=== PATIENT | male | born 1955 | race Two or more races ===

== ENCOUNTER 2016-07-12 17:46 | Emergency (ER) | payer OTHER ==
[~2016-07-12] VITALS: Ht 167.6 cm; Wt 117.9 kg
[2016-07-12] MEDS ORDERED: IV NORMAL SALINE 1000ML BAG 1,000 ML IV ONE (19:00)
[2016-07-12] MEDS ORDERED: CEFTRIAXONE 1GM IVPB FOR OMNI 50 ML IV ONE (19:00)
[2016-07-12 19:26] LABS: BASO % 0 % (0-3); EOS % 0 % (0-3); HEMATOCRIT 39.8 % (39.0-53.0); LYMPH # 0.7 x10^3/uL (1.0-4.8); LYMPH % 12 % (24-48); MEAN CORPUSCULAR HEMOGLOBIN 29 pg (25-35); MEAN CORPUSCULAR HGB CONC 33 g/dL (31-37); MEAN CORPUSCULAR VOLUME 90 fL (79-100); MONO % 12 % (0-9); NEUT % 76 % (31-73); PLATELET COUNT 155 x10^3/uL (140-400); RED BLOOD COUNT 4.41 x10^6/uL (4.30-5.70); RED CELL DISTRIBUTION WIDTH 14.8 % (11.5-14.5)
[2016-07-12 19:44] LABS: BILIRUBIN,URINE NEGATIVE (NEG); GLUCOSE,URINE NEGATIVE (NEG); NITRITE,URINE NEGATIVE (NEG); PH,URINE 5.5; PROTEIN,URINE NEGATIVE (NEG-TRACE); UROBILINOGEN,URINE 0.2 mg/dL (0.2 mg/dL)
[2016-07-12 19:44] LABS: CALCIUM 9.2 mg/dL (8.5-10.1); CREATININE 0.9 mg/dL (0.7-1.3); GFR 86.1; POTASSIUM 4.4 mmol/L (3.5-5.1)
[2016-07-12 19:48] LABS: ALBUMIN 3.6 g/dL (3.4-5.0); ALBUMIN/GLOBULIN RATIO 1.1 (1.0-1.7); TOTAL BILIRUBIN 0.3 mg/dL (0.2-1.0); TOTAL PROTEIN 6.8 g/dL (6.4-8.2)
[2016-07-12 19:57] LABS: BACTERIA,URINE 0 /HPF (0-FEW); RBC,URINE 0 /HPF (0-2); SQUAMOUS EPITHELIAL CELL,UR OCC /LPF; WBC,URINE RARE /HPF (0-4)
[2016-07-12 20:00] LABS: OBC FLU VALID
[2016-07-12 20:36] VITALS: BP 124/70
[2016-07-12] MEDS ORDERED: PRED20TA PO (20:58)
[2016-07-12] MEDS ORDERED: LEVO500T38 PO (20:58)
[2016-07-12] MEDS ORDERED: PROVENTIL HFA6.7 GM IH (20:58)
--- NOTE | 2016-07-12 20:58 | PHYS DOC ---
Past Medical History Past Medical History: COPD, Diabetes-Type II, GERD, Hypertension, [place], Other Additional Past Medical Histor: CHRONIC BACK PAIN Past Surgical History: Angioplasty, Knee Replacement, Other Additional Past Surgical Histo: HERNIA,NASAL,CARDIAC STENTS Alcohol Use: None Drug Use: None Adult General Chief Complaint Chief Complaint: COUGH HPI HPI 61-year-old male presents with several day history of cough congestion and subjective fever. He states he does not wear oxygen at home. His cough has been productive of grayish white sputum. He is tried his normal home remedies without success. [] Review of Systems Review of Systems Constitutional: Denies fever or chills [] Eyes: Denies change in visual acuity, redness, or eye pain [] HENT: Denies nasal congestion or sore throat [] Respiratory: Per history of present illness [] Cardiovascular: No additional information not addressed in HPI [] GI: Denies abdominal pain, nausea, vomiting, bloody stools or diarrhea [] : Denies dysuria or hematuria [] Musculoskeletal: Denies back pain or joint pain [] Integument: Denies rash or skin lesions [] Neurologic: Denies headache, focal weakness or sensory changes [] Endocrine: Denies polyuria or polydipsia [] Current Medications Current Medications Current Medications Medications (Trade) Dose Ordered Sig/Lilliam Start Time Stop Time Status Last Admin Dose Admin Ceftriaxone Sodium (Rocephin 1gm Ivpb For Omni) 50 ml @ 100 mls/hr 1X ONCE 07/12/16 19:00 07/12/16 19:29 DC 07/12/16 19:29 100 MLS/HR Sodium Chloride 1,000 ml @ 1,000 mls/hr 1X ONCE 07/12/16 19:00 07/12/16 19:59 DC 07/12/16 19:29 1,000 MLS/HR Allergies Allergies Allergies Coded Allergies Type Severity Reaction Last Updated Verified hydromorphone Allergy Mild RASH 07/12/16 Yes ibuprofen Allergy Mild BELLY ACHE 07/12/16 Yes oxycodone Allergy Mild UPSET STOMACH 07/12/16 Yes lamotrigine Allergy Unknown 07/12/16 Yes mirtazapine Allergy Unknown 07/12/16 Yes phenylephrine Allergy Unknown 07/12/16 Yes topiramate Allergy Unknown 07/12/16 Yes Physical Exam Physical Exam Constitutional: Well developed, well nourished, mild distress, non-toxic appearance. [] HENT: Normocephalic, atraumatic, bilateral external ears normal, oropharynx moist, no oral exudates, nose normal. [] Eyes: PERRLA, EOMI, conjunctiva normal, no discharge. [] Neck: Normal range of motion, no tenderness, supple, no stridor. [] Cardiovascular:Heart rate regular rhythm, no murmur [] Lungs & Thorax: Scattered wheezes throughout both lungs [] Abdomen: Bowel sounds normal, soft, no tenderness, no masses, no pulsatile masses. [] Skin: Warm, dry, no erythema, no rash. [] Back: No tenderness, no CVA tenderness. [] Extremities: No tenderness, no cyanosis, no clubbing, ROM intact, no edema. [] Neurologic: Alert and oriented X 3, normal motor function, normal sensory function, no focal deficits noted. [] Psychologic: Affect normal, judgement normal, mood normal. [] Current Patient Data Vital Signs Vital Signs Date Time Temp Pulse Resp B/P Pulse Ox O2 Delivery O2 Flow Rate FiO2 07/12/16 20:06 92 17 128/75 93 Nasal Cannula 2 07/12/16 18:49 99.5 99.5 Lab Values Laboratory Tests Test 07/12/16 19:13 07/12/16 19:27 White Blood Count 6.0x10^3/uL (4.0-11.0) Red Blood Count 4.41x10^6/uL (4.30-5.70) Hemoglobin 13.0g/dL (13.0-17.5) Hematocrit 39.8% (39.0-53.0) Mean Corpuscular Volume 90fL (79-100) Mean Corpuscular Hemoglobin 29pg (25-35) Mean Corpuscular Hemoglobin Concent 33g/dL (31-37) Red Cell Distribution Width 14.8% (11.5-14.5) H Platelet Count 155x10^3/uL (140-400) Neutrophils (%) (Auto) 76% (31-73) H Lymphocytes (%) (Auto) 12% (24-48) L Monocytes (%) (Auto) 12% (0-9) H Eosinophils (%) (Auto) 0% (0-3) Basophils (%) (Auto) 0% (0-3) Neutrophils # (Auto) 4.5x10^3uL (1.8-7.7) Lymphocytes # (Auto) 0.7x10^3/uL (1.0-4.8) L Monocytes # (Auto) 0.7x10^3/uL (0.0-1.1) Eosinophils # (Auto) 0.0x10^3/uL (0.0-0.7) Basophils # (Auto) 0.0x10^3/uL (0.0-0.2) Sodium Level 139mmol/L (136-145) Potassium Level 4.4mmol/L (3.5-5.1) Chloride Level 102mmol/L (98-107) Carbon Dioxide Level 28mmol/L (21-32) Anion Gap 9 (6-14) Blood Urea Nitrogen 17mg/dL (8-26) Creatinine 0.9mg/dL (0.7-1.3) Estimated GFR (Cockcroft-Gault) 86.1 BUN/Creatinine Ratio 19 (6-20) Glucose Level 126mg/dL (70-99) H Lactic Acid Level 1.4mmol/L (0.4-2.0) Calcium Level 9.2mg/dL (8.5-10.1) Total Bilirubin 0.3mg/dL (0.2-1.0) Aspartate Amino Transferase (AST) 23U/L (15-37) Alanine Aminotransferase (ALT) 33U/L (16-63) Alkaline Phosphatase 81U/L (46-116) Troponin I Quantitative < 0.017ng/mL (0.000-0.055) JS-Qfl-A-Type Natriuretic Peptide 52pg/mL (0-124) Total Protein 6.8g/dL (6.4-8.2) Albumin 3.6g/dL (3.4-5.0) Albumin/Globulin Ratio 1.1 (1.0-1.7) Urine Color Yellow Urine Clarity Clear Urine pH 5.5 Urine Specific [place] <=1.005 Urine Protein Negativemg/dL (NEG-TRACE) Urine Glucose (UA) Negativemg/dL (NEG) Urine Ketones (Stick) Negativemg/dL (NEG) Urine Blood Negative (NEG) Urine Nitrite Negative (NEG) Urine Bilirubin Negative (NEG) Urine Urobilinogen Dipstick 0.2mg/dL (0.2 mg/dL) Urine Leukocyte Esterase Negative (NEG) Urine RBC 0/HPF (0-2) Urine WBC Rare/HPF (0-4) Urine Squamous Epithelial Cells Occ/LPF Urine Bacteria 0/HPF (0-FEW) Influenza Type A Antigen Negative (NEGATIVE) Influenza Type B Antigen Negative (NEGATIVE) Laboratory Tests 07/12/16 19:13 Laboratory Tests 07/12/16 19:13 EKG EKG [EKG: Normal sinus rhythm rate of [address]-T changes] Radiology/Procedures Radiology/Procedures [] Impressions: Chest x-ray: Negative exam as interpreted by me Course & Med Decision Making Course & Med Decision Making Pertinent Labs and Imaging studies reviewed. (See chart for details) [ED course: Evaluation reveals a 61-year-old male with oxygen saturations hovering around 90% and scattered wheezes on room air. He was given breathing treatments, IV steroids and after treatment his symptoms had his HOWEVER his oxygen saturation had only improved to 92% on 2 L. I offered the patient admission to the hospital and strongly encouraged him to stay for further treatment and oxygen supplementation however the patient refused. He states he feels much better and wants to go home. He understands the risk of progressive worsening throughout the night. He states he will return to the emergency department should his symptoms worsen.] Dragon Disclaimer Dragon Disclaimer This electronic medical record was generated, in whole or in part, using a voice recognition dictation system. Departure Departure Impression: Primary Impression: COPD exacerbation Disposition: 01 HOME, SELF-CARE Condition: IMPROVED Referrals: TIM LEMUS (PCP) Patient Instructions: Chronic Obstructive Pulmonary Disease Exacerbation Additional Instructions: Thank you for allowing us to participate in your care today. Followup with your primary care physician in 3 days if your symptoms do not improve. Return to the emergency department you have any new or concerning findings. This should be evaluated by the primary care physician and any necessary consulting services for continued management within a few days after discharge. Return to emergency room if you have any new or concerning symptoms including but not limited to fever, chills, nausea, vomiting, intractable pain, any new rashes, chest pain, shortness of air, uncontrolled bleeding, difficulty breathing, and/or vision loss. You may have been prescribed medication that can change in your level of thinking and ability to operate machinery. These medications include hydrocodone and Ativan. Also, Benadryl has been known to do this as well. Be sure to check with your pharmacist and ask if the medications you've prescribed can affect your level of consciousness. I recommend not operating heavy machinery or driving while on medication such as these. Scripts Albuterol Sulfate (Proventil Hfa Inhaler)6.7 Gm Hfa.aer.ad1 Puff IH PRN Q4HRS PRN asthma #1 INHALER NS Prov:SAMI DICKENS DO 07/12/16 Prednisone 20 Mg Tablet2 Tab PO DAILY PRN COUGH #14 TAB Prov:SAMI DICKENS DO 07/12/16 Levofloxacin (Levaquin)500 Mg Tablet1 Tab PO DAILY bronchitis #10 TAB Prov:SAMI DICKENS DO 07/12/16 SAMI DICKENS DO Jul 12, 2016 20:58
--- NOTE | 2016-07-13 07:07 | EKG ---
[facility] [address] [place] [address] Test Date: 2016-07-12 Test Time: 19:03:29 Pat Name: YVETTE MURPHY Department: Room: Gender: Male Licensing Coordinator: : [id number] Requested By: SAMI DICKENS Order Number: [id number] Reading MD: Maggy Ybarra Measurements Intervals [place] Rate: 99 P: 24 CA: 168 QRS: -12 QRSD: 90 T: 4 QT: 306 QTc: 392 Interpretive Statements SINUS RHYTHM LEFTWARD AXIS RI6.01 Unconfirmed report No previous ECG available for comparison Electronically Signed On 07-14-2016 20:49:11 CDT by Maggy Ybarra
--- NOTE | 2016-07-13 08:06 | RAD ---
Indication: Fever and cough for 3 days. Hypertension and diabetes. Technique: Upright portable chest radiograph was obtained and compared to a study from February 13, 2010. Findings: The lungs are clear. The heart is not enlarged. There is no heart failure. Bony structures are intact. Leads overlie the patient. Impression: No acute thoracic findings.
== END 2016-07-12 21:06 | disposition home or self-care (01) ==
LOC: ER 17:46
DX: J44.1 Chronic obstructive pulmonary disease with (acute) exacerbation (principal); K21.9 Gastro-esophageal reflux disease without esophagitis; I25.2 Old myocardial infarction; I10 Essential (primary) hypertension; G89.29 Other chronic pain; E11.9 Type 2 diabetes mellitus without complications; Z88.6 Allergy status to analgesic agent; Z88.5 Allergy status to narcotic agent; Z88.8 Allergy status to other drugs, medicaments and biological substances; Z95.5 Presence of coronary angioplasty implant and graft
CPT/HCPCS: 36415; 71010; 80053; 81001; 83605; 83880; 84484; 85027; 87040; 87804; 93005; 96365; 99285; J0690; J7030